=== PATIENT | female | born 2000 | race Caucasian/White ===

== ENCOUNTER 2024-08-01 05:30 | Inpatient (IN) | payer MEDICAID, SELFPAY ==
[2024-08-01] VITALS (28 sets, daily range): BP systolic 112–133; BP diastolic 62–88; PULSE 54–81; RESP 16–99; TEMP 36.4–36.9; O2SAT 92–100; BMI 28.5
--- NOTE | 2024-08-01 06:06 | ESHP_ITS ---
Documentation for date of: 08/01/24 OB Labor/Induct. HPI History of Present Illness Chief complaint: labor pains : 2 Para: 0 ANNALEE: 08/06/24 Gestational Age (weeks): 39 Gestational Age (days): 2 History of present illness: 23 y/o with IUP at 39w2d presents to [facility] complaining of contractions and is noted to be in labor. Reports leaking fluid since 0500. Reports normal movement . Denies any bleeding. Has care with Apolonia Magdaleno at [facility] but there is no documentation. Gestational age is based on patients self report. Labs were obtained at [facility] and GBS is negative. History of Present Medical complications: other (Iron deficiency anemia) Labs Labs: Negative: Group Beta Strep Review of Systems Review of Systems Narrative Review of Systems: No CP, palpitations, SOB, cough , fever or LE pain Meds Home Medications and Allergies Home Medications ?Medication ?Instructions ?Recorded ?Confirmed ?Type No Known Home Medications 08/01/2409/18 History Allergies Allergy/AdvReac Type Severity Reaction Status Date / Time No Known Allergies Allergy Verified 08/01/24 06:10 OB Exam Physical Exam Vital signs: Pulse BP Pulse Ox 66 133/88 H 97 08/01/24 05:40 08/01/24 05:40 08/01/24 05:41 Routine HEENT Exam Comments: Oropharynx and sclera clear Routine Respiratory Exam Comments: CTA B/L Routine Cardiovascular Exam Comments: RRR Routine Abdominal Exam Comments: Gravid , term size. Detailed Labor and Delivery Exam Dilation (cm): 5 Effacement (%): 80 station: -2 Presentation: Vertex Membranes: intact Comments: Per RN EXam Routine Extremities Exam Comments: Nontender Routine Skin Exam Comments: No rashes or lesions Routine Neurological Exam Comments: No focal deficit. OB Results Impressions Impression: IUP 39w2d by patients self reporting Undocumented care Active labor Anticipate
[2024-08-01 06:09] LABS: ROM Kit Lot # 578010271; ROM Swab Mixed By: DS; Rupture of Fetal Membranes Positive (Negative); Swb Mxed in Solvent 1 min? Yes
[2024-08-01 07:00] LABS: Basophils % (Auto) 0 % (0-2.5); Eosinophils # (Auto) 0.1 Thou/mm3 (0.0-0.5); Eosinophils % (Auto) 1 % (0-10); Hematocrit 32.5 % (36.0-46.0); Hemoglobin 10.8 g/dL (12.0-16.0); Immature Granulocytes % (Auto) 1 % (0-0); Immature Granulocytes Auto 0.05 Thou/mm3 (0.00-0.00); Lymphocytes # (Auto) 1.4 Thou/mm3 (1.0-4.8); Lymphocytes % (Auto) 18 % (10-50); Mean Corpuscular HGB Conc 33.2 g/dl (31.0-37.0); Mean Corpuscular Hemoglobin 26.4 pg (25.0-35.0); Mean Corpuscular Volume 80 fL (80-100); Monocytes # (Auto) 0.8 Thou/mm3 (0.0-0.8); Monocytes % (Auto) 10 % (0-12); Neutrophils # (Auto) 5.5 Thou/mm3 (1.8-7.7); Neutrophils % (Auto) 71 % (37-80); Nucleated Red Blood Cell % 0 /100 WBC (0); Platelet Count 284 Thou/mm3 (140-440); RDW Standard Deviation 46.5 fL (36.4-46.3); Red Blood Count 4.09 Miln/mm3 (4.00-5.20); White Blood Count 7.7 Thou/mm3 (3.6-11.0)
[2024-08-01 07:25] LABS: Syphilis Nonreactive (Nonreactive)
[2024-08-01] MEDS: FAMOTIDINE INJ 10 MG/ML VIAL 2 ML 20 MG IV (07:32)
[2024-08-01] MEDS: ceFAZolin/D5W 2 GM IV 2 GM/100 ML BAG IV (07:32)
[2024-08-01] MEDS: CITRIC ACID/SODIUM CITR 15 ML UDC (BICITRA) 30 ML PO (07:32)
--- NOTE | 2024-08-01 08:37 | PD.LDPN ---
Documentation for date of: 08/01/24 OB Labor Progress Note Pain Control Comments: Patient is a 23-year-old G1, P0 at term who presented in active labor around 5 cm. She was turned over to me around 7:00 in the morning. Eva Winter CNM was planning on delivering her. The patient was going fast and feeling a lot of pressure and was trying to get an epidural. I was alerted to the fact that the baby might not be in a cephalic presentation by the RN and a bedside ultrasound was performed by myself revealing of the baby to be in the trevin breech presentation. As the patient was rapidly progressing and was 9 cm and pushy, an emergency was called for Pelvic Exam Dilation (cm): 5 Effacement (%): 80 station: -2 Contractions Monitor mode: External Contraction frequency: 2-5 Contraction intensity: Strong Status status: Category l Assessment and Plan Assessment: active labor Plan OB labor note: Comments: Breech presentation. For emergent primary low-transverse . Patient was consented about the risks of procedure including the risk of bleeding ,infection ,blood transfusion, and damage to bowel ,bladder ,blood vessels other organs and prolonged hospital stay should further surgery should any of the above occur. All questions were answered and all consents were signed.
--- NOTE | 2024-08-01 08:48 | PD.GYNPROC ---
Operative Note - REHABILITATION ENGINEER Procedure Date of procedure: 08/01/24 Procedure Performed: Primary low-transverse section Indication: The patient is a 23-year-old at 39 2/7 weeks who presented in active labor 5 cm and was progressing very quickly. She progressed to 9 cm and a bedside ultrasound revealed breech presentation. For emergent primary low-transverse section. Pre-Op diagnosis: 1. Intrauterine at 39-2/7 weeks 2. Active labor, 9 cm dilated 3. Trevin breech presentation Post-Op diagnosis: Same Anesthesia type: Spinal Procedure description: For obtaining informed consent, the patient was brought back to the operating room and spinal anesthesia administered. She was then prepped and draped in the dorsal supine position with a leftward tilt in a normal sterile fashion. A Villalta catheter was inserted into the patient's bladder. Patient was given 2 g of Ancef intravenously by anesthesia. A Pfannenstiel skin incision was made with a scalpel, and carried down to the underlying fascia. The fascia was incised in the midline, and the fascial incision extended laterally using Marie scissors. The superior aspect of the fascia was grasped with Jordana clamps, and the underlying rectus muscles dissected off using blunt and sharp dissection. This was repeated in the inferior aspect the incision. The rectus muscles were in the midline and the peritoneum was entered bluntly with the surgeon's fingers. This was extended superiorly and inferiorly with good visualization of the bladder. The bladder blade was inserted and the uterus was incised in a low transverse fashion using a scalpel above the bladder reflection. The uterine incision was extended laterally using blunt dissection with the surgeon's fingers. The bag grey was ruptured and clear fluid was noted. The bladder blade was removed and the was delivered atraumatically in a trevin breech presentation. The cord was clamped and cut and the was handed off to the waiting pediatric staff. Cord blood was sent. Cord gases were held. The placenta was then manually removed and handed off the operating field. The uterus was exteriorized and cleared of all clots and debris. The uterine incision was repaired with 0 Monocryl in a running locked fashion. Excellent hemostasis was noted. The uterus was returned to the patient's abdominal cavity, and copious irrigation was carried out with warm normal saline. The uterine incision was reexamined several times and noted to be hemostatic. After ensuring the rectus muscles were hemostatic, these were reapproximated in the midline along with the peritoneum with a running suture of 0 Monocryl. The fascia was closed with 0 Vicryl in a running fashion. The subcutaneous tissues were irrigated and found to be hemostatic. These were reapproximated using running suture of 3-0 plain. The skin was closed with a subcuticular suture of 4-0 Monocryl. The patient tolerated the previous procedure well, sponge, lap, needle, and instrument counts were correct x 2. The patient went to the recovery area awake and in stable condition. Complications were none. Fluids: crystalloid Fluid amount (mL): 1,000 Urine output (mL): 250 Specimen: none Implants: None Estimated blood loss (ml): 300 Findings: Liveborn male in a trevin breech presentation with no nuchal cord and no meconium . Apgars were 8 and 9 , weight was 6 pounds 6 ounces . The placenta was complete ,spontaneous ,grossly normal. Tubes ,uterus and ovaries appeared grossly normal. Complications: none Surgical staff Anesthesia provider: Olaf Joseph CRNA Oyster Cultivator: AMARJIT Donaldson Operation Date: 08/01/24 07:35 <No data on this case meets the specified criteria> Diagnosis Discharge Diagnosis (1) Supervision of high risk in third trimester: Status: Acute (2) Labor and delivery affected by breech presentation: Status: Acute Problem details: Emergent primary low-transverse section performed without complications. Problem List Completed Was Problem List Reviewed/Reconciled?: Yes
--- NOTE | 2024-08-01 09:13 | PD.LDDELS ---
Data ([facility]) Data Hx Section: No Reason for Primary Section: Active labor, breech presentation Maternal Blood Type: O Pos Rubella Titre: Positive RPR: Non-reactive Labs: Negative: RPR, Hepatitis B, HIV, Chlamydia, Gonorrhea and Group Beta Strep and Unknown: Herpes Type 1 and Herpes Type 2 : 2 Term: 0 : 0 Livin Abortions: Spontaneous & Theraputic: 1 Delivery Data ([facility]ers) Labor Data Initiation of labor: Spontaneous Induction/Augmentation Agent: None ROM date: 08/01/24 ROM time: 04:07 Amniotic membrane rupture type: Spontaneous Amniotic fluid description: Clear Delivery Data EDC: 08/06/24 EDC calculated by:: LMP/early US confirmation Date of arrival to unit: 08/01/24 Onset of labor date: 08/01/24 Onset of labor time: 04:07 [place] delivery date: 08/01/24 [place] delivery time: 07:51 Gestational age (weeks): 39 Gestational age (days): 2 Placenta delivery date: 08/01/24 Placenta delivery time: 07:52 Delivered by: [facility]othea Carval[facility] ([facility]) Delivery nurse: ferdinand Mcdaniel nurse: sukh rome Environmental Aid at delivery: Yes Support person(s) at delivery: none Delivery Method Delivery method: Low Transverse Presentation: Breech Anesthesia Type Anesthesia Type: Spinal Anesthesia type: Spinal Placenta Placenta delivery description: Manual Removal Cord blood sent to lab: Yes cord blood collection: Cord Blood Type Episiotomy Episiotomy description: None EBL Estimated blood loss (ml): 300 Umbilical Cord cord description: 3 Vessels Additional Procedures See op report for further details Complications Complications: None Data ([facility]) Data order: 1 's gender: Male Identification band number: [id number] weight (gms): 2900 g Weight (pounds): 6 lbs and 6.3 ozs [place] length: 20 m 1 minute: 8 5 minutes: 9
[2024-08-01] MEDS: OXYTOCIN in NS 20 units 20 UNIT/1,000 ML BAG 125 UNIT IV (12:56)
[2024-08-01 16:39] LABS: Amphetamine/Metham Scrn,Ur OB Negative (Negative); Benzoylecgonine Screen, Ur OB Negative (Negative); Opiate Screen,Urine OB Negative (Negative); THC Screen,Urine OB Negative (Negative)
[2024-08-01] MEDS: KETOROLAC INJ 30 MG/ML VIAL IVP (21:58)
[2024-08-02 00:25] VITALS: BP 121/70; PULSE 75; RESP 17; TEMP 37; O2SAT 96
[2024-08-02 04:09] VITALS: BP 114/73; PULSE 69; RESP 17; TEMP 36.6; O2SAT 97
[2024-08-02 05:09] LABS: Basophils % (Auto) 0 % (0-2.5); Eosinophils # (Auto) 0.1 Thou/mm3 (0.0-0.5); Eosinophils % (Auto) 1 % (0-10); Hematocrit 27.7 % (36.0-46.0); Immature Granulocytes % (Auto) 1 % (0-0); Immature Granulocytes Auto 0.04 Thou/mm3 (0.00-0.00); Lymphocytes # (Auto) 1.2 Thou/mm3 (1.0-4.8); Lymphocytes % (Auto) 13 % (10-50); Mean Corpuscular HGB Conc 32.5 g/dl (31.0-37.0); Mean Corpuscular Hemoglobin 26.2 pg (25.0-35.0); Mean Corpuscular Volume 81 fL (80-100); Monocytes # (Auto) 0.8 Thou/mm3 (0.0-0.8); Monocytes % (Auto) 9 % (0-12); Neutrophils # (Auto) 6.7 Thou/mm3 (1.8-7.7); Neutrophils % (Auto) 76 % (37-80); Nucleated Red Blood Cell % 0 /100 WBC (0); Platelet Count 202 Thou/mm3 (140-440); RDW Standard Deviation 47.1 fL (36.4-46.3); Red Blood Count 3.44 Miln/mm3 (4.00-5.20); White Blood Count 8.8 Thou/mm3 (3.6-11.0)
[2024-08-02] MEDS: SIMETHICONE 80 MG CHEW PO ×2 (07:18→14:26)
[2024-08-02] MEDS: ACETAMINOPHEN 325 MG TABLET 650 MG PO (07:18)
[2024-08-02] MEDS: Milk Of Magnesia Susp 30 ML UDC PO (07:18)
[2024-08-02 07:27] VITALS: BP 112/67; PULSE 80; RESP 18; TEMP 36.8; O2SAT 95
--- NOTE | 2024-08-02 09:25 | PD.LDPPPRG ---
Subjective Subjective Interval history: Patient is a 23-year-old G2 now P1011 status post primary 08/01/2024 for breech presentation in active labor. Patient is doing very well today. She is sitting up in bed resting comfortably breast-feeding her infant. She states her pain is controlled, she is tolerating a general diet and her bleeding is minimal. Exam Vital Signs Temp Pulse Resp BP Pulse Ox O2 Del Method 98.3 F 80 18 112/67 95 Room Air 08/02/24 07:27 08/02/24 07:27 08/02/24 07:27 08/02/24 07:27 08/02/24 07:27 08/02/24 07:27 Narrative Exam Patient is alert and oriented x 3 in no apparent distress. Fundus is firm nontender incision is dressed and dry. No significant edema or erythema lower extremities. Objective Labs 08/02/24 04:50 Labs: Laboratory Results - last 24 hr 08/01/24 08/02/24 13:09 04:50 WBC 8.8 RBC 3.44 L Hgb 9.0 L Hct 27.7 L MCV 81 MCH 26.2 MCHC 32.5 RDW Std Deviation 47.1 H Plt Count 202 D Neut % (Auto) 76 Lymph % (Auto) 13 [place] % (Auto) 9 Eos % (Auto) 1 Baso % (Auto) 0 Neut # (Auto) 6.7 Lymph # (Auto) 1.2 [place] # (Auto) 0.8 Eos # (Auto) 0.1 Baso # (Auto) 0.0 Immature Gran # (Auto) 0.04 H Absolute Nucleated RBC 0.00 Immature Gran % 1 H Nucleated RBC % 0 Urine Opiates Screen Negative U Amphetamin/Meth Scrn Negative U Cocaine Metab Screen Negative U Marijuana (THC) Screen Negative Assessment & Plan Problem List (1) Supervision of high risk in third trimester: Status: Acute (2) Labor and delivery affected by breech presentation: Problem details: Emergent primary low-transverse section performed without complications. Stable post op day #1. Routine postop orders. Anticipate discharge postoperative day #2 if patient remains stable. Status: Acute Time Spent With Patient Time: Total time spent is greater than 50% in coordination of care (as documented) at patient's floor/unit and/or counseling patient: Time with patient: less than 15 minutes
[2024-08-02 12:00] VITALS: BP 117/73; PULSE 70; RESP 18; TEMP 36.7; O2SAT 96
--- NOTE | 2024-08-02 13:40 | PC.SS ---
SS met patient at bedside with all safety precautions. SS introduced herself, role in the agency, reason for visit, and discussed limits of confidentiality. Pt was calm and reported feeling good. SS observed pt appearing to concerned with baby and made sure that SS and pt were quiet while assessment was conducted. Pt seemed to be engaged with baby. Pt has WIC and EBT. Pt lives in home with parents. Pt has support network of extended family living close by. Pt reported not having history of drugs or alcohol use in the past. Pt reported no history of domestic violence. Pt stated father of the baby will be involved with baby but she has no interest in pursuing the relationship. SS received request to visit with pt due to late to care. SS spoke to pt who stated this was pt first . Pt reported she was living in [place] when she found out about and her insurance did not cover visits; pt was able to get an ultrasound done and she made sure to take vitamins. Pt returned to [place] in January 2024 and reestablished insurance with [employer]; once this was completed pt made sure to go to all visits and followed Dr recommendations for healthy . Upon discharge pt brother, Kareem Mcnulty, will transport pt and baby. Pt states she has all necessary equipment. SS feels baby is safe to discharge home with mom when medically cleared. Pt is cleared for discharge from .
[2024-08-02] MEDS: IBUPROFEN TAB 400 MG TABLET 800 MG PO (14:26)
--- NOTE | 2024-08-02 15:44 | PC.SS ---
SS spoke with Gena, registration, updated Person to notify telephone number Kareem Mcnulty [phone] and PCP to Antonino Trujillo
[2024-08-02 19:30] VITALS: BP 138/85; PULSE 81; RESP 17; TEMP 36.6; O2SAT 99
[2024-08-03] MEDS: ACETAMINOPHEN 325 MG TABLET 650 MG PO (03:07)
[2024-08-03 03:20] VITALS: BP 121/81; PULSE 68; RESP 19; TEMP 36.4; O2SAT 98
[2024-08-03 07:30] VITALS: BP 123/69; PULSE 72; RESP 15; TEMP 36.6; O2SAT 96
--- NOTE | 2024-08-03 07:41 | PD.LDDS ---
DS: Providers Provider Date of admission: 08/01/24 06:06 Primary care physician: Antonino Trujillo MD Admitting Provider: Mick Mercer MD Attending Provider on Admission: Eva Winter CNM Consults: 08/01/24 09:44 Referral Routine Comment: Attending Provider on DC: Mick Mercer MD Discharging Provider: Mick Mercer MD DS: Diagnosis Problem List Completed Was Problem List Reviewed/Reconciled?: Yes Summary/Hosp Course Brief History: 23 y/o with IUP at 39w2d presents to [facility] complaining of contractions and is noted to be in labor. Reports leaking fluid since 0500. Reports normal movement . Denies any bleeding. Has care with Apolonia Magdaleno at [facility] but there is no documentation. Gestational age is based on patients self report. Labs were obtained at [facility] and GBS is negative. Peripartum Data Delivery Method: Low Transverse Episiotomy Description: None Procedures: Procedures Operation Date: 08/01/24 07:35 Actual Procedure Side Surgeon p in OR Dorothea Carvalho ([facility])MD Time Spent with Patient Time attestation: Total time spent providing and/or coordinating discharge services: Exam Vital Signs Temp Pulse Resp BP Pulse Ox O2 Del Method 97.6 F 68 19 121/81 98 Room Air 08/03/24 03:20 08/03/24 03:20 08/03/24 03:20 08/03/24 03:20 08/03/24 03:20 08/03/24 03:20 Discharge Plan Problem List Was Problem List Reviewed/Reconciled?: Yes Plan Patient Disposition: HOME (Self Care) Patient condition on transfer: Stable Prescriptions/Referrals Prescriptions/Med Rec: New acetaminophen 650 mg tablet extended release 650 mg PO Q8H PRN (Reason: pain) Qty: 30 0RF Referrals: Antonino Trujillo MD [Primary Care Provider] - Patient/Caregiver Discharge Instructions Discharge Activity: activity as tolerated Education Materials: C Section Dc Print Language: Yi Stand Alone Forms: Talia Award Info., Patient Portal Info Letter Discharge Order Discharge Orders: Discharge (Routine); Ordered 08/03/24 Ordered By: Mick Mercer Planned Discharge Date 08/03/24
--- NOTE | 2024-08-03 12:00 | ESPR_ITS ---
RE: MARIBELL PRIDE : 2000 DATE OF SERVICE: 08/03/2024 S: Postop day #2, the patient denies any problem or complaint. O: Vital Signs: Stable. She is afebrile. Abdomen: Incision is clear and intact. Extremities: Nontender. No edema. A: Postop day #2, status post delivery. P: Discharge home. Discharge instructions given. Follow up in the office in 1 week. DT: 11:33:10 TT: 11:58:00 Ref: [id number] - TID: [id number]
== END 2024-08-03 11:55 | disposition home or self-care (01) | DRG 540 ==
LOC: S4SX 08:21 → S4NX 09:03
PROVIDERS: Obstetrics & Gynecology; Admitting Provider Specialist; PCP Family Medicine; Visit Provider Advanced Practice Midwife
PROC: (CPT 59514; 2024-08-01 07:30)
DX: O32.1XX0 Maternal care for breech presentation, not applicable or unspecified (principal); Z3A.39 39 weeks gestation of pregnancy; Z37.0 Single live birth; O99.02 Anemia complicating childbirth; D50.8 Other iron deficiency anemias
CPT/HCPCS: 36415; 59025; 80307; 84112; 85025; 86780; 86850; 86900; 86901; A4314; A4649; J0689; J1885; J2250; J2274; J2590; J2704; J3490; A9270; J2270